=== PATIENT | male | born 1990 | race Caucasian/White ===

== ENCOUNTER 2018-04-21 10:16 | Emergency (ER) | payer OTHER | END 2018-04-21 12:38 | disposition home or self-care (01) | LOC: FTE 10:16 | DX: L30.9 Dermatitis, unspecified (principal); Z87.891 Personal history of nicotine dependence | CPT/HCPCS: 99283; Z7502 ==

== ENCOUNTER 2018-11-06 19:55 | Emergency (ER) | payer OTHER ==
[2018-11-06] MEDS: LIDOCAINE 1% (MPF) 5 ML VIAL INFIL (23:45)
[2018-11-06] MEDS: AZITHROMYCIN 500 MG TAB PO (23:45)
[2018-11-06] MEDS: CEFTRIAXONE 250 MG INJ IM (23:45)
[2018-11-07 00:15] LABS: ADD UMIC NO; UR AMORPHOUS CRYSTAL FEW /HPF (NONE SEEN); UR ASCORBIC ACID NEGATIVE (NEGATIVE); UR BILIRUBIN (Dip) NEGATIVE (NEGATIVE); UR BLOOD (Dip) NEGATIVE (NEGATIVE); UR CLARITY SLIGHTLY CLOUDY (CLEAR); UR COLOR YELLOW (YELLOW); UR GLUCOSE (Dip) NEGATIVE (NEGATIVE); UR KETONES (Dip) NEGATIVE (NEGATIVE); UR LEUKOCYTE ESTERASE (Dip) NEGATIVE Leu/ul (NEGATIVE); UR NITRITE (Dip) NEGATIVE (NEGATIVE); UR RBC 0 /HPF (0-5); UR SPECIFIC GRAVITY (Dip) 1.018 (1.003-1.030); UR TOTAL PROTEIN (Dip) NEGATIVE (NEGATIVE); UR UROBILINOGEN (Dip) NEGATIVE (NEGATIVE); UR WBC 1 /HPF (0-5)
== END 2018-11-07 01:44 | disposition home or self-care (01) ==
LOC: FTE 19:55
DX: N48.1 Balanitis (principal); Z87.891 Personal history of nicotine dependence; Z11.3 Encounter for screening for infections with a predominantly sexual mode of transmission
CPT/HCPCS: 81001; 81003; 87591; 96372; 99284-25